=== PATIENT | female | born 1990 | race African-American/Black ===

== ENCOUNTER 2017-03-08 13:49 | Emergency (ER) | payer MEDICAID ==
[~2017-03-08] VITALS: Ht 170.2 cm; Wt 90.0 kg
[~2017-03-08 13:49] MED LIST: CLIN150 PO; HYDR1CRE TOP; LABE100 PO; MACR100C PO; VIST50CA PO; ZOFR4TAB3 SL
[2017-03-08 13:54] VITALS: BP 137/74; PULSE 84; RESP 22; TEMP 99; O2SAT 100
[2017-03-08] MEDS ORDERED: LABE100T2 PO (13:59)
[2017-03-08] MEDS ORDERED: LORazepam 1 MG TAB PO ONE (14:00)
--- NOTE | 2017-03-08 14:16 | PD ---
HPI Chief Complaint: Anxiety Time Seen by Provider: 14:12 Travel History International Travel<30 days: No Contact w/Intl Traveler<30days: No Traveled to known affect area: No History of Present Illness HPI Patient is a 86-year-old female brought in by EMS for evaluation. Patient was notified just prior to arrival that her 6-month-old had at [facility]. After she was advised that her son had , patient had what EMS called and anxiety attack. Upon presentation to the emergency department patient denies any physical complaints, she is visibly upset, there is a friend at bedside. PFSH Past Medical History Diabetes: Yes (GESTATIONAL DIABETES) Diminished Hearing: No Hypertension: Yes Migraines: Yes ?: Not : 4 Para: 4 Social History Alcohol Use: No Tobacco Use: Yes Substance Use: No (MARIJUANA - LAST USE -A MONTH AGO ) Allergies-Medications (Allergen,Severity, Reaction): Coded Allergies: No Known Allergies (Verified , 12/14/14) Reported Meds & Prescriptions Reported Meds & Active Scripts Active Reported Labetalol (Labetalol HCl) 100 Mg Tab 100 Mg PO BID Review of Systems Except as stated in HPI: all other systems reviewed are Neg Psychiatric: Positive: Other (grieving) Physical Exam Narrative GENERAL: Well-nourished, well-developed patient. SKIN: Focused skin assessment warm/dry. HEAD: Normocephalic. EYES: No scleral icterus. No injection or drainage. NECK: Supple, trachea midline. No JVD or lymphadenopathy. CARDIOVASCULAR: Regular rate and rhythm without murmurs, gallops, or rubs. RESPIRATORY: Breath sounds equal bilaterally. No accessory muscle use. GASTROINTESTINAL: Abdomen soft, non-tender, nondistended. MUSCULOSKELETAL: No cyanosis, or edema. BACK: Nontender without obvious deformity. No CVA tenderness. Data Data Last Documented VS Vital Signs Date Time Temp Pulse Resp B/P Pulse Ox O2 Delivery O2 Flow Rate FiO2 03/08/17 13:54 99.0 84 22 137/74 100 Orders Lorazepam (Ativan) (03/08/17 14:00) [facility] Medical Decision Making Medical Screen Exam Complete: Yes Emergency Medical Condition: Yes Interpretation(s) Vital Signs Date Time Temp Pulse Resp B/P Pulse Ox O2 Delivery O2 Flow Rate FiO2 03/08/17 13:54 99.0 84 22 137/74 100 Differential Diagnosis Anxiety versus depression versus grieving versus other Narrative Course Patient is a 26 -year-old female presenting to emergency department for evaluation after having an anxiety attack after being notified her today. Patient's vital signs are stable, she is resting comfortably , Ativan ordered by my attending physician. Patient's significant other is on his way and is unaware of the infant's demise. Patient is requesting to be discharged to go see son. Patient will be discharged home when she is encouraged to return to emergency department for any new or worsening symptoms. Diagnosis Primary Impression: Grief at loss of child Referrals: Primary Care Physician Patient Instructions: General Instructions Additional Instructions: Follow-up with her primary doctor Emergency department immediately for any new or worsening symptoms Med/Other Pt SpecificInfo: No Change to Meds Disposition: 01 DISCHARGE HOME Condition: Stable Miladis Adams March 08, 2017 14:16
== END 2017-03-08 14:51 | disposition home or self-care (01) ==
LOC: NEPD 13:49
DX: F43.21 Adjustment disorder with depressed mood (principal); F41.9 Anxiety disorder, unspecified
CPT/HCPCS: 99283

== ENCOUNTER 2017-05-30 10:21 | Emergency (ER) | payer MEDICAID ==
[~2017-05-30] VITALS: Ht 177.8 cm; Wt 110.0 kg
[~2017-05-30 10:21] MED LIST changes: -CLIN150 PO; -HYDR1CRE TOP; -LABE100 PO; +LABE100T2 PO; -MACR100C PO; -VIST50CA PO; -ZOFR4TAB3 SL
[2017-05-30 10:25] VITALS: RESP 22; TEMP 98.8
[2017-05-30] MEDS ORDERED: SODIUM CHLORIDE 0.9% FLUSH 10 ML FLUSH IVF PRN (10:30)
[2017-05-30 10:45] VITALS: BP 168/82; PULSE 75; TEMP 98.8; O2SAT 100
[2017-05-30 11:04] LABS: AUTOMATED NEUTROPHIL # 2.9 TH/MM3 (1.8-7.7); BASOPHIL % 0.6 % (0.0-2.0); EOSINOPHIL # 0.1 TH/MM3 (0-0.4); EOSINOPHIL % 1.5 % (0.0-4.0); HEMATOCRIT 39.3 % (35.0-46.0); HEMO FLAGS DIFF FINAL; LYMPH % 37.1 % (9.0-44.0); MEAN CELL VOLUME 83.3 FL (80.0-100.0); MEAN CORPUSCULAR HEMOGLOBIN 27.7 PG (27.0-34.0); MEAN CORPUSCULAR HGB CONC 33.3 % (32.0-36.0); MONO % 6.7 % (0.0-8.0); NEUT % 54.1 % (16.0-70.0); PLATELET COUNT 159 TH/MM3 (150-450); RED BLOOD COUNT 4.72 MIL/MM3 (4.00-5.30); RED CELL DISTRIBUTION WIDTH 13.1 % (11.6-17.2); WHITE BLOOD COUNT 5.4 TH/MM3 (4.0-11.0)
[2017-05-30 11:06] VITALS: BP 161/98; PULSE 71; RESP 21; O2SAT 100
--- NOTE | 2017-05-30 11:10 | PD ---
HPI Chief Complaint: Seizure Time Seen by Provider: 10:29 Travel History International Travel<30 days: No Contact w/Intl Traveler<30days: No Traveled to known affect area: No History of Present Illness HPI 26-year-old female came to the emergency room brought by EMS after she had a witnessed seizure episode by her staff from the alf. Patient works there as an [employer]. She is currently homeless and is supposed to be on hypertension medication but because she has no money to buy she hasn't brought it for past 1 month. Patient meanwhile has been smoking 1 pack per day. She does have a child that she says she has been a single parent to. Currently she is complaining of migraine headache that has been going on for past few days. The blood pressure upon arrival on the monitor is 168/81. As per EMS her blood pressure and heart rate remained stable. GCS was 15. However as per the staff' s description to paramedics patient had a generalized tonic-clonic seizure that lasted for about 30 seconds. No history of tongue bite or incontinence. Patient does not have history of seizures in the past. Currently she is awake and answering questions appropriately. She has been tearful saying that she has been working a lot without much food and sleep in between. [facility] Past Medical History Narrative Medical List of her past medical, social, surgical and family history was reviewed from the nursing note. Cardiovascular Problems: Yes (HTN) Diabetes: Yes (GESTATIONAL DIABETES) Diminished Hearing: No Hypertension: Yes Kidney Stones: Yes Immunizations Current: No Migraines: Yes Seizures: Yes (this visit) Tetanus Vaccination: > 5 Years Influenza Vaccination: Yes ?: Unknown LMP: 05/13/17 : 4 Para: 4 Past Surgical History Abdominal Surgery: Yes (kidney stones remved) Social History Alcohol Use: No Tobacco Use: Yes Substance Use: Yes (marijuana) Allergies-Medications (Allergen,Severity, Reaction): Coded Allergies: No Known Allergies (Verified , 12/14/14) Comments List of her allergies reviewed from the nursing note. Reported Meds & Prescriptions Reported Meds & Active Scripts Active Labetalol (Labetalol HCl) 100 Mg Tab 100 Mg PO BID 30 Days Reported Labetalol (Labetalol HCl) 100 Mg Tab 100 Mg PO BID Narrative Medication List of her home medications reviewed from the nursing note. However patient says she hasn't taken these medications for past 1 month or so. Review of Systems Except as stated in HPI: all other systems reviewed are Neg Physical Exam Narrative GENERAL: Awake, alert, mild distress SKIN: Focused skin assessment warm/dry. HEAD: Atraumatic. Normocephalic. EYES: Pupils equal and round. No scleral icterus. No injection or drainage. ENT: No nasal bleeding or discharge. Mucous membranes pink and moist. NECK: Trachea midline. No JVD. CARDIOVASCULAR: Regular rate and rhythm. No murmur appreciated. RESPIRATORY: No accessory muscle use. Clear to auscultation. Breath sounds equal bilaterally. GASTROINTESTINAL: Abdomen soft, non-tender, nondistended. Hepatic and splenic margins not palpable. MUSCULOSKELETAL: No obvious deformities. No clubbing. No cyanosis. No edema. NEUROLOGICAL: Awake and alert. No obvious cranial nerve deficits. Motor grossly within normal limits. Normal speech. PSYCHIATRIC: Appropriate mood and affect; insight and judgment normal. Data Data Last Documented VS Vital Signs Date Time Temp Pulse Resp B/P Pulse Ox O2 Delivery O2 Flow Rate FiO2 05/30/17 11:06 71 21 161/98 100 Room Air 05/30/17 10:45 98.8 Orders Complete Blood Count With Diff (05/30/17 10:29) Alcohol (Ethanol) (05/30/17 10:29) Drug Screen, Random Urine (05/30/17 10:29) Electrocardiogram (05/30/17 ) Blood Glucose (05/30/17 10:29) Ecg Monitoring (05/30/17 10:29) Iv Access Insert/Monitor (05/30/17 10:29) Oximetry (05/30/17 10:29) Comprehensive Metabolic Panel (05/30/17 10:29) Sodium Chloride 0.9% Flush (Ns Flush) (05/30/17 10:30) Ed Urine Pregnancytest Poc (05/30/17 10:29) Creatine Kinase (Cpk) (05/30/17 10:29) Urinalysis - C+S If Indicated (05/30/17 12:35) Urine Culture (05/30/17 10:30) Labs Laboratory Tests Test 05/30/17 10:30 White Blood Count 5.4 TH/MM3 Red Blood Count 4.72 MIL/MM3 Hemoglobin 13.1 GM/DL Hematocrit 39.3 % Mean Corpuscular Volume 83.3 FL Mean Corpuscular Hemoglobin 27.7 PG Mean Corpuscular Hemoglobin 33.3 % Concent Red Cell Distribution Width 13.1 % Platelet Count 159 TH/MM3 Mean Platelet Volume 10.7 FL Neutrophils (%) (Auto) 54.1 % Lymphocytes (%) (Auto) 37.1 % Monocytes (%) (Auto) 6.7 % Eosinophils (%) (Auto) 1.5 % Basophils (%) (Auto) 0.6 % Neutrophils # (Auto) 2.9 TH/MM3 Lymphocytes # (Auto) 2.0 TH/MM3 Monocytes # (Auto) 0.4 TH/MM3 Eosinophils # (Auto) 0.1 TH/MM3 Basophils # (Auto) 0.0 TH/MM3 CBC Comment DIFF FINAL Differential Comment Sodium Level 142 MEQ/L Potassium Level 3.6 MEQ/L Chloride Level 110 MEQ/L Carbon Dioxide Level 22.3 MEQ/L Anion Gap 10 MEQ/L Blood Urea Nitrogen 11 MG/DL Creatinine 0.87 MG/DL Estimat Glomerular Filtration 95 ML/MIN Rate Random Glucose 90 MG/DL Calcium Level 9.0 MG/DL Total Bilirubin 0.5 MG/DL Aspartate Amino Transf 19 U/L (AST/SGOT) Alanine Aminotransferase 35 U/L (ALT/SGPT) Alkaline Phosphatase 60 U/L Total Creatine Kinase 129 U/L Total Protein 7.5 GM/DL Albumin 4.0 GM/DL Urine Opiates Screen NEG Urine Barbiturates Screen NEG Urine Amphetamines Screen NEG Urine Benzodiazepines Screen NEG Urine Cocaine Screen NEG Urine Cannabinoids Screen POS Ethyl Alcohol Level LESS THAN 3 MG/DL Urine Color YELLOW Urine Turbidity HAZY Urine pH 6.0 Urine Specific [place] 1.028 Urine Protein 100 mg/dL Urine Glucose (UA) NEG mg/dL Urine Ketones 10 mg/dL Urine Occult Blood SMALL Urine Nitrite POS Urine Bilirubin NEG Urine Urobilinogen LESS THAN 2.0 MG/DL Urine Leukocyte Esterase NEG Urine RBC 1 /hpf Urine WBC 2 /hpf Urine Squamous Epithelial 7 /hpf Cells Urine Bacteria RARE /hpf Urine Mucus FEW /lpf Microscopic Urinalysis Comment CULTURE INDICATED MDM Medical Decision Making Medical Screen Exam Complete: Yes Emergency Medical Condition: Yes Medical Record Reviewed: Yes Interpretation(s) Twelve-lead EKG was reviewed by me. Normal sinus rhythm, normal axis, nonspecific ST-T wave changes. Heart rate of 70 bpm. Differential Diagnosis New onset seizure, intracranial bleed, migraine headaches, sleep deprivation, marijuana abuse Narrative Course 11:07 AM awaiting for the blood test results and the urine. Patient is being observed currently. 12:40 PM blood test results are back and they're within normal limit. Patient is fully awake at this point and she says that she never had a seizure. She knew everything that was going on and she is not sure where people were getting the idea that she was having a seizure. 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 She once again stressed that she was awake the entire time and knew what was happening around her. I have cancelled the head CT based on this description. I'll discharge her home. I'll give her the prescription for her labetalol which she said she will fill and take it. Procedures EKG Prior to Arrival: No Diagnosis Primary Impression: Headache Qualified Code: R51 - Chronic intractable headache, unspecified headache type Additional Impressions: Altered mental status Qualified Code: R40.0 - Somnolence Marijuana abuse hypertension Poor compliance with medication Referrals: Primary Care Physician Additional Instructions: You must take your blood pressure medications like is supposed to because it's not healthy for you to stop taking these medications. Please get the prescription filled that's been given to you and take them as supposed to. Get a primary care so that this can be continued. Med/Other Pt SpecificInfo: Prescription(s) given Scripts Labetalol 100 Mg Que602 Mg PO BID 30 Days Ref 0 Prov:Sina Quinones MD 05/30/17 Disposition: DISCHARGE HOME Condition: Stable Sina Quinones MD May 30, 2017 11:10
[2017-05-30 11:34] LABS: ALT (GPT) 35 U/L (10-53); ANION GAP 10 MEQ/L (5-15); AST (GOT) 19 U/L (15-37); BICARBONATE 22.3 MEQ/L (21.0-32.0); BLOOD UREA NITROGEN 11 MG/DL (7-18); CHLORIDE 110 MEQ/L (98-107); GLOMERULAR FILTRATION RATE 95 ML/MIN (>89); POTASSIUM 3.6 MEQ/L (3.5-5.1); SODIUM (NA) 142 MEQ/L (136-145)
[2017-05-30 11:36] LABS: ALKALINE PHOSPHATASE 60 U/L (45-117); CREATINE KINASE 129 U/L (26-192); TOTAL BILIRUBIN ADULT 0.5 MG/DL (0.2-1.0)
[2017-05-30 11:41] LABS: AMPHETAMINE, URINE NEG (NEG); BARBITURATES, URINE NEG (NEG); COCAINE, URINE NEG (NEG)
[2017-05-30] MEDS ORDERED: LABE100T2 PO (12:43)
[2017-05-31 02:19] LABS: BACTERIA, URINE RARE /hpf; BLOOD, URINE SMALL (NEG); GLUCOSE,URINE NEG (NEG); KETONE, URINE 10 mg/dL (NEG); MUCUS URINE FEW /lpf (OCC); SQUAMOUS EPITHELIAL CELL URINE 7 /hpf (0-5); URINE COLOR YELLOW (YELLW/STRAW)
[2017-05-31 02:20] LABS: COMMENT (UR) CULTURE INDICATED; CULTURE IF INDICATED CULTURE INDICATED; NITRITE,URINE POS (NEG)
--- NOTE | 2017-05-31 09:54 | EKG ---
Date Performed: 05/30/2017 Time Performed: 11:08:53 PTAGE: 26 years EKG: Sinus rhythm NORMAL ECG NO PREVIOUS TRACING DOCTOR: Bhavesh Louise Interpretating Date/Time 05/31/2017 09:53:05
== END 2017-05-30 13:14 | disposition home or self-care (01) ==
LOC: NEPC 10:21
DX: R51 Headache (principal); I10 Essential (primary) hypertension; R40.0 Somnolence; F12.10 Cannabis abuse, uncomplicated; F17.200 Nicotine dependence, unspecified, uncomplicated; Z91.14 Patient's other noncompliance with medication regimen; R82.90 Unspecified abnormal findings in urine
CPT/HCPCS: 80053; 80307; 81001; 82550; 84703; 85025; 87077; 87086; 87186; 93005; 99284

== ENCOUNTER 2018-03-06 19:49 | Emergency (ER) | payer MEDICAID ==
[~2018-03-06] VITALS: Ht 175.3 cm; Wt 105.0 kg
[2018-03-06 20:15] VITALS: BP 171/100; PULSE 75; RESP 18; TEMP 98.5; O2SAT 96
--- NOTE | 2018-03-06 20:41 | PD ---
HPI Chief Complaint: generalized pain Time Seen by Provider: 20:24 Travel History International Travel<30 days: No Contact w/Intl Traveler<30days: No Traveled to known affect area: No History of Present Illness HPI 27yo F with PMH of HTN noncompliant with labetalol here with multiple complaints. Pt said she is a single mother and has been working a lot. 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 Pt has generalized pain that is worst with movement. Pain is in bilateral lower back, right sided chest with movement. Said she has been having left lower tooth pain for a while and today it radiates to her head and now she has a headache. Pt feels generalized fatigue and weakness. Denies any chest pain if she does not move. +Rhinorrhea. Denies any fever, cough, sob, n/v, abdominal pain, focal weakness or numbness. Pt has some left arm tingling yesterday that has resolved. PFSH Past Medical History Cardiovascular Problems: Yes (HTN) Diabetes: Yes (GESTATIONAL DIABETES) Diminished Hearing: No Hypertension: Yes Kidney Stones: Yes Immunizations Current: No Migraines: Yes Seizures: Yes (unknown) Tetanus Vaccination: < 5 Years Influenza Vaccination: No ?: Not LMP: implant : 4 Para: 4 Past Surgical History Abdominal Surgery: Yes (kidney stones remved) Social History Alcohol Use: No Tobacco Use: Yes Substance Use: Yes (marijuana) Allergies-Medications (Allergen,Severity, Reaction): Coded Allergies: No Known Allergies (Verified Adverse Reaction, Unknown, 03/06/18) Reported Meds & Prescriptions Reported Meds & Active Scripts Active Labetalol (Labetalol HCl) 100 Mg Tab 100 Mg PO BID 14 Days Tylenol (Acetaminophen) 325 Mg Tab 650 Mg PO Q6H PRN Labetalol (Labetalol HCl) 100 Mg Tab 100 Mg PO BID 30 Days Reported Labetalol (Labetalol HCl) 100 Mg Tab 100 Mg PO BID Review of Systems Except as stated in HPI: all other systems reviewed are Neg Physical Exam Narrative GENERAL: 27yo F in mild distress. SKIN: Focused skin assessment warm/dry. HEAD: Atraumatic. Normocephalic. EYES: Pupils equal and round. No scleral icterus. No injection or drainage. ENT: No trismus. No jaw swelling. Mouth: No tongue elevation. +TTP left lower molar with no periapical fluctuance. NECK: Trachea midline. No JVD. CARDIOVASCULAR: Regular rate and rhythm. No murmur appreciated. RESPIRATORY: No accessory muscle use. Clear to auscultation. Breath sounds equal bilaterally. GASTROINTESTINAL: Abdomen soft, non-tender, nondistended. MUSCULOSKELETAL: No obvious deformities. No clubbing. No cyanosis. No edema. NEUROLOGICAL: Awake and alert. No obvious cranial nerve deficits. Motor grossly within normal limits in all extremities. Sensation equal. Normal speech. PSYCHIATRIC: Appropriate mood and affect; insight and judgment normal. Data Data Last Documented VS Vital Signs Date Time Temp Pulse Resp B/P (MAP) Pulse Ox O2 Delivery O2 Flow Rate FiO2 03/06/18 23:30 157/84 (108) 03/06/18 21:40 58 14 100 Room Air 03/06/18 20:15 98.5 Orders Orders Diazepam (Valium) (03/06/18 20:45) Ed Urine Pregnancytest Poc (03/06/18 20:33) Urinalysis - C+S If Indicated (03/06/18 20:33) Electrocardiogram (03/06/18 ) Complete Blood Count With Diff (03/06/18 20:33) Basic Metabolic Panel (Bmp) (03/06/18 20:33) Ketorolac Inj (Toradol Inj) (03/06/18 20:45) Labetalol (Trandate) (03/06/18 20:45) Chest, Single Ap (03/06/18 ) Troponin I (03/06/18 20:33) Magnesium (Mg) (03/06/18 20:41) Hydralazine Inj (Apresoline Inj) (03/06/18 22:00) Acetamin-Hydrocod 325-5 Mg (Shirley 5-325 (03/06/18 22:45) Labs Laboratory Tests Test 03/06/18 20:40 03/06/18 20:45 Urine Color YELLOW Urine Turbidity HAZY Urine pH 6.0 Urine Specific [place] 1.028 Urine Protein 30 mg/dL Urine Glucose (UA) NEG mg/dL Urine Ketones NEG mg/dL Urine Occult Blood NEG Urine Nitrite NEG Urine Bilirubin NEG Urine Urobilinogen 4.0 MG/DL Urine Leukocyte Esterase SMALL Urine Squamous Epithelial Cells 7 /hpf Urine Mucus MANY /lpf Microscopic Urinalysis Comment CULT NOT INDICATED White Blood Count 6.3 TH/MM3 Red Blood Count 4.62 MIL/MM3 Hemoglobin 12.9 GM/DL Hematocrit 38.9 % Mean Corpuscular Volume 84.1 FL Mean Corpuscular Hemoglobin 28.0 PG Mean Corpuscular Hemoglobin Concent 33.3 % Red Cell Distribution Width 12.9 % Platelet Count 142 TH/MM3 Mean Platelet Volume 9.8 FL Neutrophils (%) (Auto) 51.6 % Lymphocytes (%) (Auto) 38.5 % Monocytes (%) (Auto) 6.4 % Eosinophils (%) (Auto) 2.9 % Basophils (%) (Auto) 0.6 % Neutrophils # (Auto) 3.2 TH/MM3 Lymphocytes # (Auto) 2.4 TH/MM3 Monocytes # (Auto) 0.4 TH/MM3 Eosinophils # (Auto) 0.2 TH/MM3 Basophils # (Auto) 0.0 TH/MM3 CBC Comment DIFF FINAL Differential Comment Blood Urea Nitrogen 9 MG/DL Creatinine 0.85 MG/DL Random Glucose 129 MG/DL Calcium Level 9.0 MG/DL Sodium Level 142 MEQ/L Potassium Level 3.4 MEQ/L Chloride Level 109 MEQ/L Carbon Dioxide Level 23.8 MEQ/L Anion Gap 9 MEQ/L Estimat Glomerular Filtration Rate 97 ML/MIN Magnesium Level 1.7 MG/DL Troponin I LESS THAN 0.02 NG/ML MDM Medical Decision Making Medical Screen Exam Complete: Yes Emergency Medical Condition: Yes Differential Diagnosis Uncontrolled hypertension vs. electrolyte abnormality vs. dehydration Narrative Course 27yo F with multiple complaints. Feel that most of it are stress related. Urine negative. Labs reviewed, no leukocytosis. H/H normal. Troponin negative. Creatinine normal. Magnesium normal. Urine negative. UA showed small leukocyte. Culture not indicated. CXR showed no acute disease. Pt given toradol, valium and hydralazine. Pt has a history of HTN but not compliant with medications. Pt reevaluated at bedside with improvement of symptoms. Return precautions given. Diagnosis Primary Impression: Uncontrolled hypertension Patient Instructions: General Instructions Departure Forms: Tests/Procedures, Work Release Enter return to work date: March 08, 2018 Additional Instructions: Please follow up with your primary care physician for blood pressure control. Return to the ED if symptoms worsen. Med/Other Pt SpecificInfo: Prescription(s) given Scripts Labetalol (Labetalol) 100 Mg Tab 100 MG PO BID for Blood Pressure Management for 14 Days, #28 TAB 0 Refills Prov: Silvina Elizondo DO 03/06/18 Acetaminophen (Tylenol) 325 Mg Tab 650 MG PO Q6H Y for PAIN SCALE 1 TO 4, #20 TAB 0 Refills Prov: Silvina Elizondo DO 03/06/18 Disposition: 01 DISCHARGE HOME Condition: Stable Silvina Elizondo DO March 06, 2018 20:41
[2018-03-06] MEDS ORDERED: DIAZEPAM 5 MG TAB PO ONE (20:45)
[2018-03-06] MEDS ORDERED: KETOROLAC TROMETHAMINE 30 MG/ML (IVP) VIAL IV PUSH ONE (20:45)
[2018-03-06] MEDS ORDERED: LABETALOL HCL 100 MG TAB PO ONE (20:45)
--- NOTE | 2018-03-06 21:12 | RADRPT ---
EXAM DATE/TIME: 03/06/2018 20:44 [place] COMPARISON: No previous studies available for comparison. INDICATIONS : Chest pain and body aches. No prior trauma. MEDICAL HISTORY : None. SURGICAL HISTORY : None. ENCOUNTER: Initial ACUITY: 2 days PAIN SCORE: 10/10 LOCATION: Bilateral chest FINDINGS: A single view of the chest demonstrates the lungs to be symmetrically aerated without evidence of mas s, infiltrate or effusion. The cardiomediastinal contours are unremarkable. Osseous structures are intact. CONCLUSION: No acute disease. Shane Cho MD on March 06, 2018 at 21:10 Board Certified Radiologist. This report was verified electronically.
[2018-03-06 21:23] LABS: AUTOMATED NEUTROPHIL # 3.2 TH/MM3 (1.8-7.7); BASOPHIL % 0.6 % (0.0-2.0); BICARBONATE 23.8 MEQ/L (21.0-32.0); BLOOD UREA NITROGEN 9 MG/DL (7-18); CHLORIDE 109 MEQ/L (98-107); CREATININE 0.85 MG/DL (0.50-1.00); EOSINOPHIL # 0.2 TH/MM3 (0-0.4); EOSINOPHIL % 2.9 % (0.0-4.0); GLOMERULAR FILTRATION RATE 97 ML/MIN (>89); GLUCOSE,RANDOM 129 MG/DL (74-106); HEMATOCRIT 38.9 % (35.0-46.0); HEMOGLOBIN 12.9 GM/DL (11.6-15.3); LYMPH % 38.5 % (9.0-44.0); LYMPHOCYTE # 2.4 TH/MM3 (1.0-4.8); MEAN CELL VOLUME 84.1 FL (80.0-100.0); MEAN CORPUSCULAR HGB CONC 33.3 % (32.0-36.0); MEAN PLATELET VOLUME 9.8 FL (7.0-11.0); MONO % 6.4 % (0.0-8.0); MONOCYTE # 0.4 TH/MM3 (0-0.9); NEUT % 51.6 % (16.0-70.0); PLATELET COUNT 142 TH/MM3 (150-450); RED BLOOD COUNT 4.62 MIL/MM3 (4.00-5.30); RED CELL DISTRIBUTION WIDTH 12.9 % (11.6-17.2); SODIUM (NA) 142 MEQ/L (136-145); WHITE BLOOD COUNT 6.3 TH/MM3 (4.0-11.0)
[2018-03-06 21:27] LABS: TROPONIN I LESS THAN 0.02 NG/ML (0.02-0.05)
[2018-03-06 21:27] LABS: BILIRUBIN, URINE NEG (NEG); BLOOD, URINE NEG (NEG); GLUCOSE,URINE NEG (NEG); KETONE, URINE NEG (NEG); MUCUS URINE MANY /lpf (OCC); NITRITE,URINE NEG (NEG); SQUAMOUS EPITHELIAL CELL URINE 7 /hpf (0-5); URINE COLOR YELLOW (YELLW/STRAW); URINE LEUKOCYTE ESTERASE SMALL (NEG)
[2018-03-06 21:40] VITALS: BP 179/100; PULSE 58; RESP 14; O2SAT 100
[2018-03-06] MEDS ORDERED: hydrALAZINE HCL 20 MG/ML VIAL IV PUSH ONE (22:00)
[2018-03-06] MEDS ORDERED: ACETAMINOPHEN/HYDROcodone 325 MG/5 MG TAB PO ONE (22:45)
[2018-03-06 23:30] VITALS: BP 157/84
[2018-03-06] MEDS ORDERED: TYLE325T PO (23:46)
[2018-03-06] MEDS ORDERED: LABE100T2 PO (23:46)
== END 2018-03-06 23:50 | disposition home or self-care (01) ==
LOC: NEPD 19:49
DX: I10 Essential (primary) hypertension (principal); M54.5 Low back pain; R07.9 Chest pain, unspecified; F12.90 Cannabis use, unspecified, uncomplicated; Z72.0 Tobacco use; Z79.899 Other long term (current) drug therapy
CPT/HCPCS: 71045; 80048; 81001; 83735; 84484; 84703; 85025; 96374; 96375; 99284; J0360; J1885